=== PATIENT | male | born 1985 | race African-American/Black ===

== ENCOUNTER 2021-05-16 22:02 | Emergency (ER) | payer SELFPAY ==
[~2021-05-16] VITALS: Ht 180.3 cm; Wt 75.0 kg
[2021-05-16] MEDS ORDERED: LORAZEPAM 2MG/ML CPJ IM ONE (23:30)
[2021-05-17 04:40] VITALS: BP 135/86
== END 2021-05-17 05:06 | disposition home or self-care (01) ==
LOC: ER 22:02
DX: T43.621A Poisoning by amphetamines, accidental (unintentional), initial encounter (principal); R00.0 Tachycardia, unspecified; F15.980 Other stimulant use, unspecified with stimulant-induced anxiety disorder; F91.8 Other conduct disorders; F17.210 Nicotine dependence, cigarettes, uncomplicated; Z71.6 Tobacco abuse counseling; Y92.89 Other specified places as the place of occurrence of the external cause
CPT/HCPCS: 93005; 96372; 99283; J2060